=== PATIENT | male | born 2000 | race Two or more races ===

== ENCOUNTER 2024-06-12 22:05 | Emergency (ER) | payer SELFPAY ==
[~2024-06-12] VITALS: Ht 162.6 cm; Wt 84.2 kg
[2024-06-12 22:23] VITALS: BP 133/60; PULSE 94; RESP 18; TEMP 98.1; O2SAT 97
== END 2024-06-12 22:53 | disposition left against medical advice (07) ==
LOC: ER 22:05
DX: M54.9 Dorsalgia, unspecified (principal); Z53.21 Procedure and treatment not carried out due to patient leaving prior to being seen by health care provider